=== PATIENT | male | born 1955 | race Caucasian/White ===

== ENCOUNTER 2020-12-16 07:50 | Inpatient (IN) | payer MEDICARE, MEDICAID ==
[~2020-12-16] VITALS: Ht 188 cm; Wt 105.3 kg
[2020-12-16 10:30] VITALS: BP 94/60
[2020-12-16] MEDS ORDERED: ONDANSETRON 2MG/ML, 2ML IVPush PRN (11:00)
[2020-12-16] MEDS ORDERED: POLYETHYLENE GLYCOL 17 GM PACKET PO PRN (11:00)
[2020-12-16] MEDS ORDERED: BISACODYL 10 MG SUPP PR PRN (11:00)
[2020-12-16] MEDS ORDERED: NOREPINEPHRINE 8 MG in SODIUM CHLORIDE 0.9% 242 ML IV PRN (11:00)
[2020-12-16] MEDS ORDERED: PLEASE ENTER ALLERGIES MC SCH (11:30)
[2020-12-16] MEDS ORDERED: PLEASE ENTER HEIGHT AND WEIGHT MC SCH (11:30)
[2020-12-16 11:34] LABS: MEAN CORPUSCULAR HEMOGLOBIN 30.6 pg (27.5-34.5); MEAN CORPUSCULAR HGB CONC 32.5 g/dL (33.2-36.2); MEAN PLATELET VOLUME 8.9 fL (7.4-10.4); PLATELET COUNT 163 x10^3/uL (130-400); RED BLOOD COUNT 3.44 x10^6/uL (4.38-5.82); RED CELL DISTRIBUTION WIDTH 15.3 % (9.4-14.8)
[2020-12-16 11:36] LABS: ALANINE AMINOTRANSFERASE 25 U/L (12-78); ALBUMIN 2.5 g/dL (3.4-5.0); ANION GAP 12 mmol/L (5-15); CALCIUM 7.9 mg/dL (8.5-10.1); CHLORIDE 110 mmol/L (98-107); CREATININE 2.76 mg/dL (0.7-1.3)
[2020-12-16 11:41] LABS: ALKALINE PHOSPHATASE 63 U/L (45-117); BILIRUBIN,TOTAL 0.6 mg/dL (0.2-1.0); CREATINE KINASE, TOTAL 166 U/L (39-308); TOTAL PROTEIN 5.7 g/dL (6.4-8.2); TROPONIN I 0.392 ng/mL (0.000-0.045)
[2020-12-16 12:07] LABS: MD YES
[2020-12-16 12:09] LABS: BAND#(MANUAL) 2.24 x10^3/uL; BANDS%(MANUAL) 16 % (0-7); LYMPH#(MANUAL) 0.98 x10^3/uL (1-3.4); LYMPHS% (MANUAL) 7 % (22-44); MONOS#(MANUAL) 0.84 x10^3/uL (0.3-2.7); MONOS% (MANUAL) 6 % (2-9); SEG#(MANUAL) 9.94 x10^3/uL (1.8-6.8); SEGS% (MANUAL) 71 % (42-75)
[2020-12-16 12:12] LABS: ANISOCYTOSIS 1+; OVALOCYTES 1+
[2020-12-16 12:13] LABS: ECHINOCYTES 1+
[2020-12-16 12:15] LABS: PMNS WITH VACUOLES 1+
[2020-12-16 12:16] LABS: <PLATELET ESTIMATE> ADEQUATE; <PLT MORPHOLOGY> NORMAL PLT MORPH
[2020-12-16] MEDS: PIPERACILLIN/TAZO 3.375 GM in DEXTROSE 5% 50 ML IV SCH ×2 (13:33→20:24)
[2020-12-16] MEDS: SODIUM BICARBONATE 8.4% 150 MEQ in DEXTROSE 5% 1,000 ML IV SCH (13:33)
[2020-12-16] MEDS ORDERED: MAGN400T36 PO (15:36)
[2020-12-16] MEDS ORDERED: FURO20TA3 PO (15:36)
[2020-12-16] MEDS ORDERED: CARV-39 PO (15:36)
[2020-12-16] MEDS ORDERED: PANT40TA6 PO (15:36)
[2020-12-16] MEDS ORDERED: APIX5TAB PO (15:36)
[2020-12-16] MEDS ORDERED: GLIP5TAB10 PO (15:36)
[2020-12-16] MEDS ORDERED: DILT-8 PO (15:36)
[2020-12-16] MEDS ORDERED: LOSA25TA25 PO (15:36)
[2020-12-16] MEDS ORDERED: ATOR40TA78 PO (15:36)
[2020-12-16] MEDS: ERGOCALCIFEROL 50,000 UNIT CAPSULE PO SCH (16:43)
[2020-12-16 17:29] LABS: MICROSCOPIC INDICATED
[2020-12-16] MEDS: FAMOTIDINE 20 MG TABLET PO SCH (20:25)
[2020-12-16] MEDS ORDERED: FAMOTIDINE 20 MG TABLET PO SCH (21:00)
[2020-12-17] MEDS: PIPERACILLIN/TAZO 3.375 GM in DEXTROSE 5% 50 ML IV SCH (02:38)
[2020-12-17 04:36] LABS: MEAN PLATELET VOLUME 9.2 fL (7.4-10.4); PLATELET COUNT 143 x10^3/uL (130-400); RED BLOOD COUNT 3.38 x10^6/uL (4.38-5.82); RED CELL DISTRIBUTION WIDTH 15.4 % (9.4-14.8)
[2020-12-17 04:46] LABS: ALANINE AMINOTRANSFERASE 22 U/L (12-78); ALBUMIN 2.1 g/dL (3.4-5.0); ANION GAP 9 mmol/L (5-15); CALCIUM 8.3 mg/dL (8.5-10.1); CHLORIDE 111 mmol/L (98-107); CREATININE 3.13 mg/dL (0.7-1.3)
[2020-12-17 04:49] LABS: ALKALINE PHOSPHATASE 55 U/L (45-117); BILIRUBIN,TOTAL 0.6 mg/dL (0.2-1.0); TOTAL PROTEIN 5.2 g/dL (6.4-8.2)
[2020-12-17 05:47] VITALS: BP 115/71
[2020-12-17 05:59] LABS: MD YES
[2020-12-17 06:01] LABS: BAND#(MANUAL) 0.85 x10^3/uL; BANDS%(MANUAL) 7 % (0-7); LYMPH#(MANUAL) 0.12 x10^3/uL (1-3.4); LYMPHS% (MANUAL) 1 % (22-44); METAMYELOCYTES# (MANUAL) 0.24 x10^3/uL (0-0); METAMYELOCYTES% (MANUAL) 2 % (0-1); MONOS#(MANUAL) 0.61 x10^3/uL (0.3-2.7); MONOS% (MANUAL) 5 % (2-9); SEG#(MANUAL) 10.37 x10^3/uL (1.8-6.8); SEGS% (MANUAL) 85 % (42-75)
[2020-12-17 06:02] LABS: <PLATELET ESTIMATE> ADEQUATE; <PLT MORPHOLOGY> NORMAL PLT MORPH; ANISOCYTOSIS 1+; ECHINOCYTES 1+
[2020-12-17 06:21] VITALS: BP 113/55
[2020-12-17] MEDS: PIPERACILLIN/TAZO 2.25 GM in SODIUM CHLORIDE 0.9% 50 ML IVPB SCH ×2 (06:50→14:18)
[2020-12-17] MEDS: SODIUM BICARBONATE 8.4% 150 MEQ in DEXTROSE 5% 1,000 ML IV SCH ×3 (06:50→21:26)
[2020-12-17] MEDS: SENNA/DOCUSATE TABLET PO SCH (07:28)
[2020-12-17] MEDS: HEPARIN 5,000 UNITS/ML, 1ML SQ SCH ×2 (10:40→22:30)
[2020-12-17 11:04] LABS: POTASSIUM,URINE RANDOM 69 mmol/L
[2020-12-17 11:08] LABS: CHLORIDE,URINE RANDOM < 10 mmol/L; SODIUM,URINE RANDOM < 5 mmol/L
[2020-12-17 11:50] LABS: FIO2 ROOM AIR %
[2020-12-17 12:00] VITALS: BP 118/79
[2020-12-17 13:02] LABS: MICROSCOPIC INDICATED
[2020-12-17] MEDS ORDERED: EPHEDRINE 50 MG/ML, 1ML ONE (16:17)
[2020-12-17] MEDS ORDERED: PHENYLEPHRINE 10 MG/ML ONE (16:17)
[2020-12-17] MEDS ORDERED: FENTANYL PF 100 MCG/2ML ONE ×2 (16:19→16:57)
[2020-12-17] MEDS ORDERED: ALBUMIN HUMAN 5% 500 ML ONE (16:51)
[2020-12-17] MEDS ORDERED: FENTANYL PF 250 MCG/5ML ONE (17:21)
[2020-12-17] MEDS ORDERED: MIDAZOLAM 1 MG/ML, 5ML ONE (17:22)
[2020-12-17] MEDS ORDERED: DAKIN'S SOLUTION 1/4 STRENGTH 1,000 ML IRRIG SOLN EXT ONE (17:30)
[2020-12-17] MEDS ORDERED: PROPOFOL 100 ML IV ONE (17:49)
[2020-12-17] MEDS: PHENYLEPHRINE 50 MG in SODIUM CHLORIDE 0.9% 245 ML IV PRN (17:50)
[2020-12-17] MEDS: PROPOFOL 100 ML IV PRN (17:50)
[2020-12-17] MEDS ORDERED: LACTULOSE 20 GM/30 ML UDC NG PRN (18:00)
[2020-12-17] MEDS ORDERED: PHARMACOKINETIC CONSULTATION MC ONE (18:00)
[2020-12-17] MEDS ORDERED: LIDOCAINE-MPF 1%, 2ML ENDO PRN (18:00)
[2020-12-17] MEDS ORDERED: BISACODYL 10 MG SUPP PR PRN (18:00)
[2020-12-17] MEDS ORDERED: VANCOMYCIN PER PHARMACY MC PRN (18:00)
[2020-12-17] MEDS ORDERED: PHARMACY MAY ADJ FOR RENAL FX MC SCH (18:00)
[2020-12-17] MEDS ORDERED: SENNA 176 MG/5 ML ORAL SOL NG PRN (18:00)
[2020-12-17] MEDS ORDERED: PHARMACOKINETIC MONITORING MC PRN (18:00)
[2020-12-17] MEDS ORDERED: MEROPENEM 500 MG in SODIUM CHLORIDE 0.9% 100 ML IV SCH (18:30)
[2020-12-17] MEDS ORDERED: VANCOMYCIN 2,300 MG in SODIUM CHLORIDE 0.9% 500 ML IV ONE (18:30)
[2020-12-17] MEDS: CLINDAMYCIN PMX 900MG/50ML 50 ML IV SCH (19:32)
[2020-12-17] MEDS: FAMOTIDINE 20 MG TABLET PO SCH (21:00)
[2020-12-17] MEDS: MEROPENEM 500 MG in SODIUM CHLORIDE 0.9% 100 ML IV SCH (21:19)
[2020-12-18] MEDS: PHENYLEPHRINE 50 MG in SODIUM CHLORIDE 0.9% 245 ML IV PRN (00:03)
[2020-12-18] MEDS: PROPOFOL 100 ML IV PRN ×3 (03:00→17:41)
[2020-12-18] MEDS: CLINDAMYCIN PMX 900MG/50ML 50 ML IV SCH ×3 (03:00→18:32)
[2020-12-18 04:39] LABS: BASOPHILS % (AUTO) 0 % (0-1); EOSINOPHILS % (AUTO) 0 % (1-7); LYMPHOCYTES % (AUTO) 5 % (22-44); MEAN CORPUSCULAR HEMOGLOBIN 31.1 pg (27.5-34.5); MEAN CORPUSCULAR HGB CONC 33.4 g/dL (33.2-36.2); MEAN PLATELET VOLUME 9.4 fL (7.4-10.4); MONOCYTES % (AUTO) 8 % (2-9); NEUTROPHILS % (AUTO) 87 % (42-75); PLATELET COUNT 129 x10^3/uL (130-400); RED BLOOD COUNT 2.96 x10^6/uL (4.38-5.82); RED CELL DISTRIBUTION WIDTH 15.2 % (9.4-14.8)
[2020-12-18 04:53] LABS: ALANINE AMINOTRANSFERASE 16 U/L (12-78); ALBUMIN 1.8 g/dL (3.4-5.0); ANION GAP 11 mmol/L (5-15); CALCIUM 7.5 mg/dL (8.5-10.1); CHLORIDE 107 mmol/L (98-107); CREATININE 2.81 mg/dL (0.7-1.3)
[2020-12-18 04:56] LABS: ALKALINE PHOSPHATASE 49 U/L (45-117); BILIRUBIN,TOTAL 0.6 mg/dL (0.2-1.0); TOTAL PROTEIN 4.8 g/dL (6.4-8.2)
[2020-12-18 05:16] LABS: MD SCAN
[2020-12-18] MEDS: FENTANYL PF 100 MCG/2ML IVPush PRN ×4 (05:24→18:00)
[2020-12-18] MEDS: SODIUM BICARBONATE 8.4% 150 MEQ in DEXTROSE 5% 1,000 ML IV SCH (06:42)
[2020-12-18] MEDS: MEROPENEM 500 MG in SODIUM CHLORIDE 0.9% 100 ML IV SCH ×2 (06:46→17:42)
[2020-12-18] MEDS: SENNA/DOCUSATE TABLET PO SCH (07:56)
[2020-12-18] MEDS: POTASSIUM CHLORIDE 20 MEQ PACKET PO SCH ×2 (07:56→21:38)
[2020-12-18] MEDS ORDERED: NOREPINEPHRINE 8 MG in SODIUM CHLORIDE 0.9% 242 ML IV PRN (09:00)
[2020-12-18] MEDS: HEPARIN 5,000 UNITS/ML, 1ML SQ SCH ×2 (10:06→21:40)
[2020-12-18] MEDS: LACTOBACILLUS CHEW TABLET PO SCH ×3 (10:06→21:39)
[2020-12-18] MEDS: ALBUMIN HUMAN 25% 100 ML IV SCH ×2 (10:06→18:31)
[2020-12-18] MEDS: SODIUM CHLORIDE 0.9% 1,000 ML IV SCH (11:03)
[2020-12-18 13:46] LABS: ANA SCREEN NEGATIVE (Negative)
--- NOTE | 2020-12-18 14:48 | NUR ---
Vital HP Trickle feeds at 10 ml/hr, do not advance Addendum: 12/18/20 at [address] Amended: Links added.
[2020-12-18] MEDS: DAKIN'S SOLUTION 1/4 STRENGTH 1,000 ML IRRIG SOLN EXT SCH ×3 (15:10→21:40)
[2020-12-18] MEDS: FAMOTIDINE 20 MG TABLET PO SCH (21:40)
[2020-12-19] MEDS: SODIUM CHLORIDE 0.9% 1,000 ML IV SCH ×3 (01:02→22:35)
[2020-12-19] MEDS: ALBUMIN HUMAN 25% 100 ML IV SCH ×3 (01:02→17:23)
[2020-12-19] MEDS: PROPOFOL 100 ML IV PRN ×2 (01:02→06:47)
[2020-12-19] MEDS: CLINDAMYCIN PMX 900MG/50ML 50 ML IV SCH (01:52)
[2020-12-19] MEDS: FENTANYL PF 100 MCG/2ML IVPush PRN (04:08)
[2020-12-19] MEDS: DAKIN'S SOLUTION 1/4 STRENGTH 1,000 ML IRRIG SOLN EXT SCH ×4 (04:17→19:14)
[2020-12-19 04:50] LABS: BASOPHILS % (AUTO) 0 % (0-1); EOSINOPHILS % (AUTO) 1 % (1-7); LYMPHOCYTES % (AUTO) 7 % (22-44); MEAN CORPUSCULAR HGB CONC 33.6 g/dL (33.2-36.2); MEAN PLATELET VOLUME 9.5 fL (7.4-10.4); MONOCYTES % (AUTO) 10 % (2-9); NEUTROPHILS % (AUTO) 82 % (42-75); PLATELET COUNT 134 x10^3/uL (130-400); RED CELL DISTRIBUTION WIDTH 15.1 % (9.4-14.8)
[2020-12-19 05:02] LABS: ALANINE AMINOTRANSFERASE 16 U/L (12-78); ALBUMIN 2.3 g/dL (3.4-5.0); ANION GAP 8 mmol/L (5-15); CALCIUM 7.9 mg/dL (8.5-10.1); CHLORIDE 110 mmol/L (98-107); CREATININE 2.21 mg/dL (0.7-1.3)
[2020-12-19 05:05] LABS: ALKALINE PHOSPHATASE 67 U/L (45-117); BILIRUBIN,TOTAL 1.1 mg/dL (0.2-1.0); VANCOMYCIN,RANDOM 14.7 mcg/mL
[2020-12-19 05:46] LABS: MD SCAN
[2020-12-19] MEDS: MEROPENEM 500 MG in SODIUM CHLORIDE 0.9% 100 ML IV SCH ×2 (06:46→18:26)
[2020-12-19] MEDS ORDERED: MIDAZOLAM 1 MG/ML, 2ML ONE (08:37)
[2020-12-19] MEDS ORDERED: FENTANYL PF 100 MCG/2ML ONE (08:37)
[2020-12-19] MEDS: SENNA/DOCUSATE TABLET PO SCH (08:52)
[2020-12-19] MEDS: LACTOBACILLUS CHEW TABLET PO SCH ×3 (08:52→21:16)
[2020-12-19] MEDS: POTASSIUM CHLORIDE 20 MEQ PACKET PO SCH ×2 (09:01→21:16)
[2020-12-19] MEDS: HEPARIN 5,000 UNITS/ML, 1ML SQ SCH ×2 (10:30→22:25)
--- NOTE | 2020-12-19 13:04 | NUR ---
Vital HP goal:80 ml/hr on propofol, 90 ml/hr off propofol Addendum: 12/19/20 at [address] Amended: Links added.
[2020-12-19] MEDS: OXYcodone IR 5MG TABLET PO PRN ×2 (13:42→17:17)
[2020-12-19] MEDS: FAMOTIDINE 20 MG TABLET PO SCH (21:16)
[2020-12-20] MEDS: ALBUMIN HUMAN 25% 100 ML IV SCH (00:23)
[2020-12-20 04:24] LABS: BASOPHILS % (AUTO) 1 % (0-1); EOSINOPHILS % (AUTO) 1 % (1-7); LYMPHOCYTES % (AUTO) 4 % (22-44); MEAN CORPUSCULAR HEMOGLOBIN 30.7 pg (27.5-34.5); MEAN CORPUSCULAR HGB CONC 33.2 g/dL (33.2-36.2); MEAN PLATELET VOLUME 9.1 fL (7.4-10.4); MONOCYTES % (AUTO) 10 % (2-9); NEUTROPHILS % (AUTO) 85 % (42-75); PLATELET COUNT 188 x10^3/uL (130-400); RED BLOOD COUNT 2.93 x10^6/uL (4.38-5.82); RED CELL DISTRIBUTION WIDTH 15.2 % (9.4-14.8)
[2020-12-20 04:29] LABS: ALANINE AMINOTRANSFERASE 22 U/L (12-78); ALBUMIN 2.8 g/dL (3.4-5.0); ANION GAP 7 mmol/L (5-15); CALCIUM 8.2 mg/dL (8.5-10.1); CHLORIDE 116 mmol/L (98-107)
[2020-12-20 04:32] LABS: ALKALINE PHOSPHATASE 93 U/L (45-117); BILIRUBIN,TOTAL 1.5 mg/dL (0.2-1.0); TOTAL PROTEIN 5.5 g/dL (6.4-8.2)
[2020-12-20 04:49] LABS: MD SCAN
[2020-12-20] MEDS: DAKIN'S SOLUTION 1/4 STRENGTH 1,000 ML IRRIG SOLN EXT SCH (05:04)
[2020-12-20] MEDS: MEROPENEM 500 MG in SODIUM CHLORIDE 0.9% 100 ML IV SCH (06:05)
[2020-12-20] MEDS: hydrALAzine 20 MG/ML, 1ML IV PRN (06:05)
[2020-12-20] MEDS: CARVEDILOL 12.5 MG TABLET PO SCH ×2 (07:06→17:48)
[2020-12-20] MEDS: LACTOBACILLUS CHEW TABLET PO SCH ×3 (08:38→20:20)
[2020-12-20] MEDS: APIXABAN 5 MG TABLET PO SCH ×2 (08:38→20:20)
[2020-12-20] MEDS: CEFTRIAXONE 1,000 MG in DEXTROSE 5% 50 ML IVPB SCH ×2 (08:38→20:20)
[2020-12-20] MEDS: POTASSIUM CHLORIDE 20 MEQ PACKET PO SCH ×2 (08:38→17:48)
[2020-12-20] MEDS: SENNA/DOCUSATE TABLET PO SCH (08:38)
[2020-12-20 11:27] VITALS: BP 152/92
[2020-12-20] MEDS: IRON SUCROSE COMPLEX 100MG/5ML IV SCH (12:08)
[2020-12-20] MEDS: OXYcodone IR 5MG TABLET PO PRN (12:09)
[2020-12-20 19:46] VITALS: BP 148/85
[2020-12-20] MEDS: ATORVASTATIN 40 MG TABLET PO SCH (20:20)
[2020-12-20] MEDS: FAMOTIDINE 20 MG TABLET PO SCH (20:20)
[2020-12-21 00:18] VITALS: BP 151/89
[2020-12-21] MEDS: OXYcodone IR 5MG TABLET PO PRN ×4 (00:25→14:28)
[2020-12-21 04:48] LABS: MEAN CORPUSCULAR HEMOGLOBIN 30.1 pg (27.5-34.5); MEAN CORPUSCULAR HGB CONC 32.8 g/dL (33.2-36.2); MEAN PLATELET VOLUME 9.1 fL (7.4-10.4); PLATELET COUNT 276 x10^3/uL (130-400); RED BLOOD COUNT 3.32 x10^6/uL (4.38-5.82); RED CELL DISTRIBUTION WIDTH 15.3 % (9.4-14.8)
[2020-12-21 05:00] LABS: ANION GAP 4 mmol/L (5-15); CALCIUM 8.7 mg/dL (8.5-10.1); CHLORIDE 118 mmol/L (98-107); CREATININE 0.92 mg/dL (0.7-1.3)
[2020-12-21 05:01] LABS: ALBUMIN 2.4 g/dL (3.4-5.0)
[2020-12-21] MEDS: CARVEDILOL 12.5 MG TABLET PO SCH ×2 (05:37→17:44)
[2020-12-21 06:14] LABS: MD YES
[2020-12-21] MEDS: hydrALAzine 20 MG/ML, 1ML IV PRN ×2 (06:15→20:16)
[2020-12-21] MEDS: ACETAMINOPHEN 325 MG TABLET PO PRN (06:15)
[2020-12-21 06:16] LABS: BANDS%(MANUAL) 7 % (0-7); EOS#(MANUAL) 0.19 x10^3/uL (0.0-0.4); EOS% (MANUAL) 1 % (1-7); LYMPH#(MANUAL) 0.93 x10^3/uL (1-3.4); LYMPHS% (MANUAL) 5 % (22-44); METAMYELOCYTES# (MANUAL) 0.37 x10^3/uL (0-0); METAMYELOCYTES% (MANUAL) 2 % (0-1); MONOS#(MANUAL) 1.49 x10^3/uL (0.3-2.7); MONOS% (MANUAL) 8 % (2-9); SEG#(MANUAL) 14.32 x10^3/uL (1.8-6.8); SEGS% (MANUAL) 77 % (42-75)
[2020-12-21 06:17] LABS: ANISOCYTOSIS 1+; OVALOCYTES 1+
[2020-12-21 06:18] LABS: <PLATELET ESTIMATE> ADEQUATE; <PLT MORPHOLOGY> NORMAL PLT MORPH; TOXIC GRAN 1+
[2020-12-21] MEDS ORDERED: NITROGLYCERIN 0.4 MG/SPRAY SL PRN (06:30)
[2020-12-21] MEDS ORDERED: NITROGLYCERIN 0.4 MG BOTTLE (25 TABS) SL PRN (06:30)
[2020-12-21] MEDS ORDERED: SODIUM PHOSPHATE 20 MMOL in SODIUM CHLORIDE 0.9% 500 ML IV ONE (06:30)
[2020-12-21 07:40] VITALS: BP 127/63
[2020-12-21] MEDS: APIXABAN 5 MG TABLET PO SCH ×2 (08:51→20:16)
[2020-12-21] MEDS: LACTOBACILLUS CHEW TABLET PO SCH ×3 (08:51→20:16)
[2020-12-21] MEDS: POTASSIUM CHLORIDE 20 MEQ TAB.ER.PRT PO SCH ×2 (08:51→17:44)
[2020-12-21] MEDS: SENNA/DOCUSATE TABLET PO SCH (08:52)
[2020-12-21] MEDS: CEFTRIAXONE 1,000 MG in DEXTROSE 5% 50 ML IVPB SCH (08:52)
[2020-12-21] MEDS: MEROPENEM 1 GM in SODIUM CHLORIDE 0.9% 100 ML IV SCH ×2 (10:30→18:06)
[2020-12-21] MEDS: IRON SUCROSE COMPLEX 100MG/5ML IV SCH (12:09)
[2020-12-21 12:31] VITALS: BP 166/92
[2020-12-21 14:32] VITALS: BP 176/97
[2020-12-21 19:01] VITALS: BP 158/95
[2020-12-21 20:06] VITALS: BP 161/93
[2020-12-21] MEDS: ATORVASTATIN 40 MG TABLET PO SCH (20:16)
[2020-12-21] MEDS: FAMOTIDINE 20 MG TABLET PO SCH (20:16)
[2020-12-22 00:40] VITALS: BP 146/92
[2020-12-22] MEDS: MEROPENEM 1 GM in SODIUM CHLORIDE 0.9% 100 ML IV SCH ×3 (01:42→17:24)
[2020-12-22 05:03] LABS: MEAN CORPUSCULAR HEMOGLOBIN 30.7 pg (27.5-34.5); MEAN CORPUSCULAR HGB CONC 33.3 g/dL (33.2-36.2); PLATELET COUNT 320 x10^3/uL (130-400); RED BLOOD COUNT 3.08 x10^6/uL (4.38-5.82); RED CELL DISTRIBUTION WIDTH 15.4 % (9.4-14.8)
[2020-12-22 05:12] LABS: ALBUMIN 2.3 g/dL (3.4-5.0); ANION GAP 6 mmol/L (5-15); CALCIUM 8.6 mg/dL (8.5-10.1); CHLORIDE 118 mmol/L (98-107)
[2020-12-22 05:15] LABS: ALANINE AMINOTRANSFERASE 60 U/L (12-78); ALKALINE PHOSPHATASE 142 U/L (45-117); BILIRUBIN,TOTAL 1.8 mg/dL (0.2-1.0); CREATININE 0.73 mg/dL (0.7-1.3); TOTAL PROTEIN 5.5 g/dL (6.4-8.2)
[2020-12-22] MEDS: CARVEDILOL 12.5 MG TABLET PO SCH ×2 (05:50→17:23)
[2020-12-22] MEDS: hydrALAzine 20 MG/ML, 1ML IV PRN ×2 (05:50→17:42)
[2020-12-22 05:51] VITALS: BP 164/99
[2020-12-22 05:53] LABS: MD YES
[2020-12-22 05:54] LABS: ANISOCYTOSIS 1+; BAND#(MANUAL) 0.18 x10^3/uL; BANDS%(MANUAL) 1 % (0-7); EOS#(MANUAL) 0.18 x10^3/uL (0.0-0.4); EOS% (MANUAL) 1 % (1-7); LYMPHS% (MANUAL) 8 % (22-44); METAMYELOCYTES# (MANUAL) 0.35 x10^3/uL (0-0); METAMYELOCYTES% (MANUAL) 2 % (0-1); MONOS% (MANUAL) 4 % (2-9); MYELOCYTES# (MANUAL) 0.18 x10^3/uL (0-0); MYELOCYTES% (MANUAL) 1 % (0-0); SEG#(MANUAL) 14.53 x10^3/uL (1.8-6.8); SEGS% (MANUAL) 83 % (42-75)
[2020-12-22 05:55] LABS: POLYCHROMASIA 1+
[2020-12-22 05:58] LABS: <PLATELET ESTIMATE> ADEQUATE; <PLT MORPHOLOGY> NORMAL PLT MORPH
[2020-12-22] MEDS ORDERED: POTASSIUM CHLORIDE 20 MEQ TAB.ER.PRT PO ONE (07:00)
[2020-12-22 08:15] VITALS: BP 159/88
[2020-12-22] MEDS ORDERED: MAGNESIUM SULFATE PMX 2GM/50ML 50 ML IV ONE (08:30)
[2020-12-22] MEDS: SENNA/DOCUSATE TABLET PO SCH (09:00)
[2020-12-22] MEDS: APIXABAN 5 MG TABLET PO SCH ×2 (09:11→17:39)
[2020-12-22] MEDS: LACTOBACILLUS CHEW TABLET PO SCH ×3 (09:11→21:59)
[2020-12-22] MEDS: LOSARTAN 25MG TABLET PO SCH ×2 (12:48→21:59)
[2020-12-22] MEDS: POTASSIUM CHLORIDE 10 MEQ in SODIUM CHLORIDE 0.45% 1,000 ML IV SCH (12:48)
[2020-12-22] MEDS: IRON SUCROSE COMPLEX 100MG/5ML IV SCH (12:48)
[2020-12-22] MEDS: INSULIN LISPRO 100 UNITS/ML, PEN SQ-INSULIN SCH ×4 (12:59→21:57)
[2020-12-22 13:58] VITALS: BP 159/87
[2020-12-22 17:25] VITALS: BP 178/89
[2020-12-22 18:37] LABS: INTERNATIONAL NORMALIZED RATIO 1.53 (0.93-1.1); PROTHROMBIN TIME 16.2 Seconds (9.6-11.5)
[2020-12-22 19:10] VITALS: BP 132/72
[2020-12-22] MEDS: ATORVASTATIN 40 MG TABLET PO SCH (21:59)
[2020-12-22] MEDS: FAMOTIDINE 20 MG TABLET PO SCH (21:59)
[2020-12-22] MEDS: INSULIN GLARGINE 100 UNITS/ML, PEN SQ-INSULIN SCH (22:37)
[2020-12-23] VITALS (7 sets, daily range): BP systolic 138–172; BP diastolic 64–100
[2020-12-23] MEDS: MEROPENEM 1 GM in SODIUM CHLORIDE 0.9% 100 ML IV SCH ×3 (02:22→17:24)
[2020-12-23] MEDS: POTASSIUM CHLORIDE 10 MEQ in SODIUM CHLORIDE 0.45% 1,000 ML IV SCH (03:01)
[2020-12-23] MEDS: CARVEDILOL 12.5 MG TABLET PO SCH ×2 (06:14→17:22)
[2020-12-23 06:43] LABS: ALBUMIN 2.3 g/dL (3.4-5.0); ANION GAP 5 mmol/L (5-15); CALCIUM 8.4 mg/dL (8.5-10.1); CHLORIDE 119 mmol/L (98-107)
[2020-12-23 06:44] LABS: CREATININE 0.66 mg/dL (0.7-1.3)
[2020-12-23] MEDS: INSULIN LISPRO 100 UNITS/ML, PEN SQ-INSULIN SCH ×7 (07:00→21:28)
[2020-12-23] MEDS ORDERED: POTASSIUM CHLORIDE 20 MEQ TAB.ER.PRT PO ONE (07:00)
[2020-12-23] MEDS ORDERED: POTASSIUM CHLORIDE 20 MEQ in DEXTROSE 5% 1,000 ML IV SCH (07:00)
[2020-12-23] MEDS: SENNA/DOCUSATE TABLET PO SCH (07:44)
[2020-12-23] MEDS: APIXABAN 5 MG TABLET PO SCH ×2 (07:49→19:36)
[2020-12-23] MEDS: LACTOBACILLUS CHEW TABLET PO SCH ×3 (08:04→21:02)
[2020-12-23] MEDS: LOSARTAN 25MG TABLET PO SCH ×2 (08:04→21:01)
[2020-12-23] MEDS: IRON SUCROSE COMPLEX 100MG/5ML IV SCH (12:47)
[2020-12-23] MEDS: hydrALAzine 20 MG/ML, 1ML IV PRN (12:47)
[2020-12-23] MEDS: ERGOCALCIFEROL 50,000 UNIT CAPSULE PO SCH (17:54)
[2020-12-23] MEDS: ATORVASTATIN 40 MG TABLET PO SCH (21:01)
[2020-12-23] MEDS: FAMOTIDINE 20 MG TABLET PO SCH (21:02)
[2020-12-23] MEDS: INSULIN GLARGINE 100 UNITS/ML, PEN SQ-INSULIN SCH (21:28)
[2020-12-24 00:43] VITALS: BP 153/78
[2020-12-24] MEDS: ACETAMINOPHEN 325 MG TABLET PO PRN (01:50)
[2020-12-24] MEDS: MEROPENEM 1 GM in SODIUM CHLORIDE 0.9% 100 ML IV SCH (02:04)
[2020-12-24 05:47] LABS: BASOPHILS % (AUTO) 1 % (0-1); EOSINOPHILS % (AUTO) 2 % (1-7); LYMPHOCYTES % (AUTO) 8 % (22-44); MEAN CORPUSCULAR HEMOGLOBIN 30.6 pg (27.5-34.5); MEAN CORPUSCULAR HGB CONC 33.3 g/dL (33.2-36.2); MEAN PLATELET VOLUME 8.7 fL (7.4-10.4); MONOCYTES % (AUTO) 8 % (2-9); NEUTROPHILS % (AUTO) 82 % (42-75); PLATELET COUNT 376 x10^3/uL (130-400); RED BLOOD COUNT 2.85 x10^6/uL (4.38-5.82); RED CELL DISTRIBUTION WIDTH 15.3 % (9.4-14.8)
[2020-12-24] MEDS: CARVEDILOL 12.5 MG TABLET PO SCH (05:48)
[2020-12-24 05:51] LABS: ANION GAP 3 mmol/L (5-15); CALCIUM 8.1 mg/dL (8.5-10.1); CHLORIDE 116 mmol/L (98-107)
[2020-12-24 05:52] LABS: HCT (SEDRATE) 26.3 % (39.2-51.8)
[2020-12-24 05:56] LABS: MD NO
[2020-12-24 06:47] VITALS: BP 138/66
[2020-12-24] MEDS: INSULIN LISPRO 100 UNITS/ML, PEN SQ-INSULIN SCH ×4 (07:00→21:00)
[2020-12-24] MEDS: APIXABAN 5 MG TABLET PO SCH ×2 (09:07→21:19)
[2020-12-24] MEDS: LOSARTAN 25MG TABLET PO SCH ×2 (09:08→21:19)
[2020-12-24] MEDS: LACTOBACILLUS CHEW TABLET PO SCH ×3 (09:08→21:19)
[2020-12-24] MEDS: SENNA/DOCUSATE TABLET PO SCH ×2 (09:09→09:11)
[2020-12-24] MEDS: OXYcodone IR 5MG TABLET PO PRN ×2 (09:09→17:14)
[2020-12-24] MEDS: AMPICILLIN/SULBACTAM 3 GM in SODIUM CHLORIDE 0.9% 100 ML IV SCH ×2 (10:45→21:14)
[2020-12-24 11:35] LABS: CLOSTRIDIUM DIFFICILE ANTIGEN NEGATIVE; CLOSTRIDIUM DIFFICILE TOXIN NEGATIVE (Negative)
[2020-12-24] MEDS: IRON SUCROSE COMPLEX 100MG/5ML IV SCH (12:39)
[2020-12-24 12:42] VITALS: BP 147/89
[2020-12-24] MEDS: CARVEDILOL 25 MG TABLET PO SCH (17:13)
[2020-12-24 19:06] VITALS: BP 138/75
[2020-12-24] MEDS: INSULIN GLARGINE 100 UNITS/ML, PEN SQ-INSULIN SCH (21:16)
[2020-12-24] MEDS: ATORVASTATIN 40 MG TABLET PO SCH (21:19)
[2020-12-24] MEDS: FAMOTIDINE 20 MG TABLET PO SCH (21:19)
[2020-12-24 23:44] VITALS: BP 119/81
[2020-12-25] MEDS: AMPICILLIN/SULBACTAM 3 GM in SODIUM CHLORIDE 0.9% 100 ML IV SCH ×3 (05:09→21:31)
[2020-12-25 05:31] VITALS: BP 145/76
[2020-12-25] MEDS: CARVEDILOL 25 MG TABLET PO SCH ×2 (05:39→17:18)
[2020-12-25 05:54] LABS: ANION GAP 3 mmol/L (5-15); CALCIUM 8.1 mg/dL (8.5-10.1); CHLORIDE 114 mmol/L (98-107)
[2020-12-25 05:56] LABS: BASOPHILS % (AUTO) 2 % (0-1); CREATININE 0.59 mg/dL (0.7-1.3); EOSINOPHILS % (AUTO) 1 % (1-7); LYMPHOCYTES % (AUTO) 7 % (22-44); MEAN CORPUSCULAR HEMOGLOBIN 30.1 pg (27.5-34.5); MEAN CORPUSCULAR HGB CONC 32.5 g/dL (33.2-36.2); MEAN PLATELET VOLUME 9.2 fL (7.4-10.4); MONOCYTES % (AUTO) 9 % (2-9); NEUTROPHILS % (AUTO) 81 % (42-75); PLATELET COUNT 418 x10^3/uL (130-400); RED BLOOD COUNT 2.89 x10^6/uL (4.38-5.82); RED CELL DISTRIBUTION WIDTH 15.7 % (9.4-14.8)
[2020-12-25 06:03] LABS: MD NO
[2020-12-25 07:03] VITALS: BP 129/79
[2020-12-25] MEDS: INSULIN LISPRO 100 UNITS/ML, PEN SQ-INSULIN SCH ×4 (07:26→21:00)
[2020-12-25] MEDS: SENNA/DOCUSATE TABLET PO SCH (09:00)
[2020-12-25] MEDS: FAMOTIDINE 20 MG TABLET PO SCH ×2 (10:01→21:31)
[2020-12-25] MEDS: APIXABAN 5 MG TABLET PO SCH ×2 (10:01→21:31)
[2020-12-25] MEDS: LOSARTAN 25MG TABLET PO SCH ×2 (10:01→21:31)
[2020-12-25] MEDS: LACTOBACILLUS CHEW TABLET PO SCH ×3 (10:01→21:31)
[2020-12-25 12:25] VITALS: BP 161/94
[2020-12-25] MEDS: ACETAMINOPHEN 325 MG TABLET PO PRN ×2 (12:48→21:59)
[2020-12-25 18:10] VITALS: BP 133/79
[2020-12-25] MEDS ORDERED: INSULIN GLARGINE 100 UNITS/ML, PEN SQ-INSULIN SCH (21:00)
[2020-12-25 21:30] VITALS: BP 151/90
[2020-12-25] MEDS: ATORVASTATIN 40 MG TABLET PO SCH (21:31)
[2020-12-25 23:51] VITALS: BP 125/75
[2020-12-26] MEDS: ACETAMINOPHEN 325 MG TABLET PO PRN (04:43)
[2020-12-26 05:23] LABS: MEAN CORPUSCULAR HEMOGLOBIN 30.4 pg (27.5-34.5); MEAN CORPUSCULAR HGB CONC 32.6 g/dL (33.2-36.2); MEAN PLATELET VOLUME 9.2 fL (7.4-10.4); PLATELET COUNT 498 x10^3/uL (130-400); RED BLOOD COUNT 2.94 x10^6/uL (4.38-5.82); RED CELL DISTRIBUTION WIDTH 15.4 % (9.4-14.8)
[2020-12-26 05:29] LABS: MD YES
[2020-12-26 05:32] LABS: ANION GAP 6 mmol/L (5-15); CHLORIDE 112 mmol/L (98-107); CREATININE 0.64 mg/dL (0.7-1.3)
[2020-12-26] MEDS: AMPICILLIN/SULBACTAM 3 GM in SODIUM CHLORIDE 0.9% 100 ML IV SCH ×3 (05:46→22:27)
[2020-12-26] MEDS: CARVEDILOL 25 MG TABLET PO SCH ×2 (05:51→17:07)
[2020-12-26 06:07] LABS: BASOS#(MANUAL) 0.12 x10^3/uL (0-0.1); BASOS% (MANUAL) 1 % (0-1); EOS#(MANUAL) 0.35 x10^3/uL (0.0-0.4); EOS% (MANUAL) 3 % (1-7); LYMPH#(MANUAL) 0.83 x10^3/uL (1-3.4); LYMPHS% (MANUAL) 7 % (22-44); METAMYELOCYTES# (MANUAL) 0.12 x10^3/uL (0-0); METAMYELOCYTES% (MANUAL) 1 % (0-1); MONOS% (MANUAL) 11 % (2-9); MYELOCYTES# (MANUAL) 0.12 x10^3/uL (0-0); MYELOCYTES% (MANUAL) 1 % (0-0); SEG#(MANUAL) 8.97 x10^3/uL (1.8-6.8); SEGS% (MANUAL) 76 % (42-75)
[2020-12-26 06:08] LABS: <PLATELET ESTIMATE> INCREASED; <PLT MORPHOLOGY> NORMAL PLT MORPH
[2020-12-26 06:09] LABS: ANISOCYTOSIS 1+
[2020-12-26] MEDS: INSULIN LISPRO 100 UNITS/ML, PEN SQ-INSULIN SCH ×4 (07:00→20:46)
[2020-12-26 07:27] VITALS: BP 151/87
[2020-12-26] MEDS: FAMOTIDINE 20 MG TABLET PO SCH ×2 (08:36→20:47)
[2020-12-26] MEDS: APIXABAN 5 MG TABLET PO SCH ×2 (08:36→20:47)
[2020-12-26] MEDS: LACTOBACILLUS CHEW TABLET PO SCH ×3 (08:36→20:46)
[2020-12-26] MEDS: SENNA/DOCUSATE TABLET PO SCH (08:36)
[2020-12-26] MEDS: LOSARTAN 25MG TABLET PO SCH ×2 (08:36→20:47)
[2020-12-26] MEDS: OXYcodone IR 5MG TABLET PO PRN ×2 (12:03→20:48)
[2020-12-26 14:00] VITALS: BP 178/106
[2020-12-26] MEDS: hydrALAzine 20 MG/ML, 1ML IV PRN ×2 (14:18→16:20)
[2020-12-26 16:20] VITALS: BP 167/96
[2020-12-26] MEDS ORDERED: METOPROLOL 1 MG/ML, 5ML IVPush PRN (17:00)
[2020-12-26 19:50] VITALS: BP 167/84
[2020-12-26 20:30] VITALS: BP 157/71
[2020-12-26] MEDS: ATORVASTATIN 40 MG TABLET PO SCH (20:47)
[2020-12-27 00:53] VITALS: BP 163/94
[2020-12-27 01:30] VITALS: BP 152/75
[2020-12-27] MEDS: AMPICILLIN/SULBACTAM 3 GM in SODIUM CHLORIDE 0.9% 100 ML IV SCH ×3 (05:51→22:39)
[2020-12-27] MEDS: CARVEDILOL 25 MG TABLET PO SCH ×2 (05:52→17:50)
[2020-12-27 06:58] VITALS: BP 138/71
[2020-12-27] MEDS: INSULIN LISPRO 100 UNITS/ML, PEN SQ-INSULIN SCH ×4 (07:00→21:00)
[2020-12-27] MEDS: SENNA/DOCUSATE TABLET PO SCH (09:00)
[2020-12-27] MEDS: FAMOTIDINE 20 MG TABLET PO SCH ×2 (09:20→22:30)
[2020-12-27] MEDS: APIXABAN 5 MG TABLET PO SCH ×2 (09:21→22:30)
[2020-12-27] MEDS: LOSARTAN 25MG TABLET PO SCH ×2 (09:21→22:30)
[2020-12-27] MEDS: LACTOBACILLUS CHEW TABLET PO SCH ×3 (09:21→22:30)
[2020-12-27] MEDS: OXYcodone IR 5MG TABLET PO PRN ×3 (09:27→22:54)
[2020-12-27 14:03] VITALS: BP 145/83
[2020-12-27 19:39] VITALS: BP 123/78
[2020-12-27] MEDS: ATORVASTATIN 40 MG TABLET PO SCH (22:30)
[2020-12-28 01:22] VITALS: BP 142/84
[2020-12-28] MEDS: OXYcodone IR 5MG TABLET PO PRN ×3 (03:56→20:18)
[2020-12-28 05:13] LABS: BASOPHILS % (AUTO) 1 % (0-1); EOSINOPHILS % (AUTO) 1 % (1-7); LYMPHOCYTES % (AUTO) 10 % (22-44); MD NO; MEAN CORPUSCULAR HEMOGLOBIN 30.5 pg (27.5-34.5); MEAN CORPUSCULAR HGB CONC 32.9 g/dL (33.2-36.2); MEAN PLATELET VOLUME 8.7 fL (7.4-10.4); MONOCYTES % (AUTO) 14 % (2-9); NEUTROPHILS % (AUTO) 75 % (42-75); PLATELET COUNT 530 x10^3/uL (130-400); RED BLOOD COUNT 2.88 x10^6/uL (4.38-5.82)
[2020-12-28 05:18] LABS: ANION GAP 7 mmol/L (5-15); CALCIUM 7.9 mg/dL (8.5-10.1); CHLORIDE 111 mmol/L (98-107); CREATININE 0.65 mg/dL (0.7-1.3)
[2020-12-28] MEDS: AMPICILLIN/SULBACTAM 3 GM in SODIUM CHLORIDE 0.9% 100 ML IV SCH ×3 (05:50→23:54)
[2020-12-28] MEDS: CARVEDILOL 25 MG TABLET PO SCH ×2 (05:50→18:03)
[2020-12-28] MEDS: INSULIN LISPRO 100 UNITS/ML, PEN SQ-INSULIN SCH ×4 (07:00→20:38)
[2020-12-28 07:01] VITALS: BP 120/70
[2020-12-28] MEDS: SENNA/DOCUSATE TABLET PO SCH (09:00)
[2020-12-28] MEDS: FAMOTIDINE 20 MG TABLET PO SCH ×2 (09:47→20:16)
[2020-12-28] MEDS: APIXABAN 5 MG TABLET PO SCH ×2 (09:47→20:17)
[2020-12-28] MEDS: LACTOBACILLUS CHEW TABLET PO SCH ×3 (09:47→20:16)
[2020-12-28] MEDS: LOSARTAN 25MG TABLET PO SCH ×2 (09:48→20:17)
[2020-12-28 12:04] LABS: MICROSCOPIC INDICATED
[2020-12-28 13:39] VITALS: BP 147/77
[2020-12-28 20:00] VITALS: BP 127/71
[2020-12-28] MEDS: ATORVASTATIN 40 MG TABLET PO SCH (20:16)
[2020-12-29 01:57] VITALS: BP 125/64
[2020-12-29] MEDS: OXYcodone IR 5MG TABLET PO PRN ×3 (02:05→22:34)
[2020-12-29] MEDS: CARVEDILOL 25 MG TABLET PO SCH ×2 (06:08→18:19)
[2020-12-29 06:09] VITALS: BP 155/81
[2020-12-29] MEDS: INSULIN LISPRO 100 UNITS/ML, PEN SQ-INSULIN SCH ×4 (07:00→22:31)
[2020-12-29] MEDS: APIXABAN 5 MG TABLET PO SCH ×2 (07:38→22:11)
[2020-12-29] MEDS: AMPICILLIN/SULBACTAM 3 GM in SODIUM CHLORIDE 0.9% 100 ML IV SCH ×3 (07:43→22:39)
[2020-12-29] MEDS: LOSARTAN 25MG TABLET PO SCH ×2 (07:44→22:11)
[2020-12-29] MEDS: FAMOTIDINE 20 MG TABLET PO SCH ×2 (07:44→22:12)
[2020-12-29] MEDS: LACTOBACILLUS CHEW TABLET PO SCH ×3 (07:44→22:11)
[2020-12-29] MEDS: SENNA/DOCUSATE TABLET PO SCH ×2 (07:45→22:32)
[2020-12-29 08:00] VITALS: BP 126/78
[2020-12-29] MEDS ORDERED: FENTANYL PF 100 MCG/2ML ONE ×2 (10:23→11:59)
[2020-12-29] MEDS ORDERED: PROPOFOL 10 MG/ML, 20ML ONE (11:23)
[2020-12-29] MEDS ORDERED: ONDANSETRON 2MG/ML, 2ML ONE (11:23)
[2020-12-29] MEDS ORDERED: SUCCINYLCHOLINE 20 MG/ML, 10ML ONE (11:23)
[2020-12-29] MEDS ORDERED: CEFAZOLIN 1,000 MG ONE (11:23)
[2020-12-29] MEDS ORDERED: OXYcodone 5 MG/5 ML ORAL.SOL UDC ONE (11:44)
[2020-12-29] MEDS ORDERED: ALBUTEROL SULFATE 2.5 MG/3 ML NPPB PRN (12:00)
[2020-12-29] MEDS ORDERED: MEPERIDINE/PF 25MG/0.5ML IVPush PRN (12:00)
[2020-12-29] MEDS ORDERED: DIAZEPAM 5 MG/ML, 2ML IV PRN ×2 (12:00)
[2020-12-29] MEDS ORDERED: KETOROLAC 30 MG/1 ML IV PRN (12:00)
[2020-12-29] MEDS ORDERED: PROMETHAZINE 25 MG/ML, 1ML IV PRN (12:00)
[2020-12-29] MEDS ORDERED: METOCLOPRAMIDE 5 MG/ML, 2ML IV PRN (12:00)
[2020-12-29] MEDS ORDERED: LABETALOL 5MG/ML, 20ML IV PRN (12:00)
[2020-12-29] MEDS ORDERED: FENTANYL PF 100 MCG/2ML IV PRN (12:00)
[2020-12-29] MEDS ORDERED: ONDANSETRON 2MG/ML, 2ML IVPush PRN (12:00)
[2020-12-29] MEDS ORDERED: OXYcodone 5 MG/5 ML ORAL.SOL UDC PO PRN (12:00)
[2020-12-29] MEDS ORDERED: hydrALAzine 20 MG/ML, 1ML IV PRN (12:00)
[2020-12-29] MEDS ORDERED: HYDROmorphone 1 MG/ML, 1ML INJ IV PRN (12:00)
[2020-12-29 12:25] VITALS: BP 133/76
[2020-12-29 18:52] VITALS: BP 137/68
[2020-12-29] MEDS ORDERED: MIDAZOLAM 1 MG/ML, 2ML ONE (19:45)
[2020-12-29] MEDS: ATORVASTATIN 40 MG TABLET PO SCH (22:11)
[2020-12-29 22:12] VITALS: BP 163/96
[2020-12-30 00:17] VITALS: BP 141/79
[2020-12-30 06:06] VITALS: BP 155/68
[2020-12-30] MEDS: AMPICILLIN/SULBACTAM 3 GM in SODIUM CHLORIDE 0.9% 100 ML IV SCH ×3 (06:06→22:26)
[2020-12-30] MEDS: CARVEDILOL 25 MG TABLET PO SCH ×2 (06:06→16:52)
[2020-12-30 07:30] VITALS: BP 154/72
[2020-12-30 08:03] LABS: BASOPHILS % (AUTO) 0 % (0-1); EOSINOPHILS % (AUTO) 1 % (1-7); LYMPHOCYTES % (AUTO) 12 % (22-44); MEAN CORPUSCULAR HEMOGLOBIN 30.7 pg (27.5-34.5); MEAN CORPUSCULAR HGB CONC 33.2 g/dL (33.2-36.2); MEAN PLATELET VOLUME 7.9 fL (7.4-10.4); MONOCYTES % (AUTO) 10 % (2-9); NEUTROPHILS % (AUTO) 77 % (42-75); PLATELET COUNT 425 x10^3/uL (130-400); RED BLOOD COUNT 2.48 x10^6/uL (4.38-5.82)
[2020-12-30 08:06] LABS: MD NO
[2020-12-30 08:15] LABS: ALANINE AMINOTRANSFERASE 32 U/L (12-78); ALBUMIN 1.8 g/dL (3.4-5.0); ANION GAP 4 mmol/L (5-15); CALCIUM 7.8 mg/dL (8.5-10.1); CHLORIDE 111 mmol/L (98-107); CREATININE 0.65 mg/dL (0.7-1.3)
[2020-12-30 08:18] LABS: ALKALINE PHOSPHATASE 180 U/L (45-117); BILIRUBIN,TOTAL 0.8 mg/dL (0.2-1.0); TOTAL PROTEIN 5.4 g/dL (6.4-8.2)
[2020-12-30] MEDS: INSULIN LISPRO 100 UNITS/ML, PEN SQ-INSULIN SCH ×4 (08:18→21:00)
[2020-12-30] MEDS: SENNA/DOCUSATE TABLET PO SCH (08:18)
[2020-12-30] MEDS: LOSARTAN 25MG TABLET PO SCH ×2 (08:57→21:09)
[2020-12-30] MEDS: FAMOTIDINE 20 MG TABLET PO SCH ×2 (08:57→21:09)
[2020-12-30] MEDS: LACTOBACILLUS CHEW TABLET PO SCH ×3 (08:57→21:08)
[2020-12-30] MEDS: APIXABAN 5 MG TABLET PO SCH ×2 (08:57→21:09)
[2020-12-30 13:30] VITALS: BP 158/89
[2020-12-30] MEDS: ERGOCALCIFEROL 50,000 UNIT CAPSULE PO SCH (16:52)
[2020-12-30 16:56] VITALS: BP 158/93
[2020-12-30] MEDS: ACETAMINOPHEN 325 MG TABLET PO PRN (16:58)
[2020-12-30 20:32] VITALS: BP 161/75
[2020-12-30] MEDS: ATORVASTATIN 40 MG TABLET PO SCH (21:09)
[2020-12-31] VITALS (8 sets, daily range): BP systolic 152–173; BP diastolic 79–104
[2020-12-31] MEDS: ACETAMINOPHEN 325 MG TABLET PO PRN ×2 (02:35→20:18)
[2020-12-31 05:24] LABS: BASOPHILS % (AUTO) 1 % (0-1); EOSINOPHILS % (AUTO) 2 % (1-7); LYMPHOCYTES % (AUTO) 13 % (22-44); MD NO; MEAN CORPUSCULAR HEMOGLOBIN 30.2 pg (27.5-34.5); MEAN CORPUSCULAR HGB CONC 33.1 g/dL (33.2-36.2); MEAN PLATELET VOLUME 8.4 fL (7.4-10.4); MONOCYTES % (AUTO) 9 % (2-9); NEUTROPHILS % (AUTO) 75 % (42-75); PLATELET COUNT 391 x10^3/uL (130-400); RED BLOOD COUNT 2.55 x10^6/uL (4.38-5.82)
[2020-12-31 05:39] LABS: CHLORIDE 108 mmol/L (98-107)
[2020-12-31 06:00] LABS: ALANINE AMINOTRANSFERASE 31 U/L (12-78); ALBUMIN 1.8 g/dL (3.4-5.0); ALKALINE PHOSPHATASE 184 U/L (45-117); ANION GAP 5 mmol/L (5-15); BILIRUBIN,TOTAL 0.9 mg/dL (0.2-1.0); CALCIUM 7.6 mg/dL (8.5-10.1); TOTAL PROTEIN 5.5 g/dL (6.4-8.2)
[2020-12-31] MEDS: CARVEDILOL 25 MG TABLET PO SCH ×2 (06:19→16:48)
[2020-12-31] MEDS: AMPICILLIN/SULBACTAM 3 GM in SODIUM CHLORIDE 0.9% 100 ML IV SCH ×3 (06:19→22:39)
[2020-12-31] MEDS: INSULIN LISPRO 100 UNITS/ML, PEN SQ-INSULIN SCH ×4 (07:00→20:09)
[2020-12-31] MEDS ORDERED: POTASSIUM CHLORIDE 20 MEQ TAB.ER.PRT PO ONE (07:30)
[2020-12-31] MEDS: SENNA/DOCUSATE TABLET PO SCH (09:00)
[2020-12-31] MEDS: FAMOTIDINE 20 MG TABLET PO SCH ×2 (09:26→20:04)
[2020-12-31] MEDS: LOSARTAN 25MG TABLET PO SCH ×2 (09:27→20:04)
[2020-12-31] MEDS: APIXABAN 5 MG TABLET PO SCH ×2 (09:29→20:04)
[2020-12-31] MEDS: LACTOBACILLUS CHEW TABLET PO SCH ×3 (09:32→20:03)
[2020-12-31] MEDS: OXYcodone IR 5MG TABLET PO PRN (10:09)
[2020-12-31] MEDS: ATORVASTATIN 40 MG TABLET PO SCH (20:04)
[2021-01-01 00:15] VITALS: BP 163/78
[2021-01-01] MEDS: CARVEDILOL 25 MG TABLET PO SCH (06:16)
[2021-01-01] MEDS: AMPICILLIN/SULBACTAM 3 GM in SODIUM CHLORIDE 0.9% 100 ML IV SCH (06:18)
[2021-01-01] MEDS: hydrALAzine 20 MG/ML, 1ML IV PRN (06:21)
[2021-01-01] MEDS: INSULIN LISPRO 100 UNITS/ML, PEN SQ-INSULIN SCH ×2 (07:00→11:00)
[2021-01-01 07:32] VITALS: BP 153/83
[2021-01-01] MEDS ORDERED: AMPI3VIA IV (08:14)
[2021-01-01] MEDS ORDERED: INSU200I SQ-INSULIN (08:16)
[2021-01-01] MEDS: SENNA/DOCUSATE TABLET PO SCH (09:00)
[2021-01-01] MEDS: LACTOBACILLUS CHEW TABLET PO SCH (09:52)
[2021-01-01] MEDS: APIXABAN 5 MG TABLET PO SCH (09:53)
[2021-01-01] MEDS: FAMOTIDINE 20 MG TABLET PO SCH (09:53)
[2021-01-01] MEDS: LOSARTAN 25MG TABLET PO SCH (09:53)
== END 2021-01-01 11:26 | DRG 853 ==
LOC: CCU 10:33 → 4EST 12-17 05:40 → CCU 12-17 12:27 → 5SO 12-20 11:15
PROVIDERS: ADMIT Internal Medicine; ATTEND Hospitalist
PROC: 0J9N0ZZ Drainage of Right Lower Leg Subcutaneous Tissue and Fascia, Open Approach (ICD-10-PCS; 2020-12-17)
PROC: 02H633Z Insertion of Infusion Device into Right Atrium, Percutaneous Approach (ICD-10-PCS; 2020-12-17)
PROC: 0BH17EZ Insertion of Endotracheal Airway into Trachea, Via Natural or Artificial Opening (ICD-10-PCS; 2020-12-17)
PROC: 5A1945Z Respiratory Ventilation, 24-96 Consecutive Hours (ICD-10-PCS; 2020-12-17)
PROC: 0JBN0ZZ Excision of Right Lower Leg Subcutaneous Tissue and Fascia, Open Approach (ICD-10-PCS; principal; 2020-12-17 15:00)
PROC: 5A0935A Assistance with Respiratory Ventilation, Less than 24 Consecutive Hours, High Flow/Velocity Cannula (ICD-10-PCS; 2020-12-19)
PROC: 02HV33Z Insertion of Infusion Device into Superior Vena Cava, Percutaneous Approach (ICD-10-PCS; 2020-12-22)
PROC: B548ZZA Ultrasonography of Superior Vena Cava, Guidance (ICD-10-PCS; 2020-12-22)
PROC: B5181ZA Fluoroscopy of Superior Vena Cava using Low Osmolar Contrast, Guidance (ICD-10-PCS; 2020-12-22)
PROC: 0JBN0ZZ Excision of Right Lower Leg Subcutaneous Tissue and Fascia, Open Approach (ICD-10-PCS; 2020-12-29)
DX: A41.59 Other Gram-negative sepsis (principal); N17.0 Acute kidney failure with tubular necrosis; R65.21 Severe sepsis with septic shock; G92 Toxic encephalopathy; I21.A1 Myocardial infarction type 2; J96.90 Respiratory failure, unspecified, unspecified whether with hypoxia or hypercapnia; M72.6 Necrotizing fasciitis; E87.0 Hyperosmolality and hypernatremia; E87.1 Hypo-osmolality and hyponatremia; F11.20 Opioid dependence, uncomplicated; I13.0 Hypertensive heart and chronic kidney disease with heart failure and stage 1 through stage 4 chronic kidney disease, or unspecified chronic kidney disease; I48.20 Chronic atrial fibrillation, unspecified; I50.42 Chronic combined systolic (congestive) and diastolic (congestive) heart failure; I82.622 Acute embolism and thrombosis of deep veins of left upper extremity; L03.115 Cellulitis of right lower limb; N25.81 Secondary hyperparathyroidism of renal origin; D63.8 Anemia in other chronic diseases classified elsewhere; D69.6 Thrombocytopenia, unspecified; E11.22 Type 2 diabetes mellitus with diabetic chronic kidney disease; E11.649 Type 2 diabetes mellitus with hypoglycemia without coma; E55.9 Vitamin D deficiency, unspecified; E78.5 Hyperlipidemia, unspecified; E86.9 Volume depletion, unspecified; E87.6 Hypokalemia; G89.29 Other chronic pain; I87.2 Venous insufficiency (chronic) (peripheral); I87.8 Other specified disorders of veins; M10.9 Gout, unspecified; M19.90 Unspecified osteoarthritis, unspecified site; M60.9 Myositis, unspecified; N18.9 Chronic kidney disease, unspecified; Z79.01 Long term (current) use of anticoagulants; Z79.4 Long term (current) use of insulin; Z86.73 Personal history of transient ischemic attack (TIA), and cerebral infarction without residual deficits; E11.65 Type 2 diabetes mellitus with hyperglycemia; Z90.89 Acquired absence of other organs; Z20.822 Contact with and (suspected) exposure to COVID-19; Z88.6 Allergy status to analgesic agent
CPT/HCPCS: 36415; 36573; 36600; 70450; 71045; 76770; 80048; 80053; 80069; 80074; 80202; 81001; 82140; 82306; 82330; 82436; 82533; 82550; 82570; 82607; 82728; 82803; 82962; 83036; 83520; 83540; 83550; 83605; 83690; 83735; 83970; 84100; 84133; 84300; 84443; 84478; 84484; 84550; 85014; 85018; 85025; 85610; 85651; 86038; 86063; 86140; 86160; 86162; 86225; 86256; 87040; 87070; 87075; 87077; 87081; 87086; 87106; 87176; 87186; 87205; 87324; 87635; 93005; 93306; 93922; 93925; 94002; 94003; G0378; J0295; J0690; J0696; J1644; J1756; J2185; J2250; J2405; J2543; J2704; J3010; J3370; J3480; J7070; P9045; P9047; C1751; J0330; J0360; J1815; J2370; J3475; J7030; J7040; J7050